=== PATIENT | female | born 1945 | race Caucasian/White ===

== ENCOUNTER → 2016-08-08 | Outpatient (CLI) | payer MEDICARE, BC ==
[~2016-08-08] MED LIST: ADVAIR 500-501 EACH IH; CALCIUM 600 +1 EAC2 PO; CENTRUM PO; DYMISTA NASAL S23 GM NS; EVISTA60 M1 PO; FLOVENT DISKU250 MCG IH; HYDROCHLOROTHIA25 MG PO; IRON1 TA1 PO; IRON325 MG PO; LIPITOR40 MG PO; LISINOPRIL-HCTZ1 T20 PO; NAPROSYN375 MG PO; NAPROSYN500 MG PO; NEURONTIN300 MG PO; NORVASC2.5 MG PO; PULMICORT180 MCG/A1 IH; SPIRIVA18 MCG INH; SYMBICORT INH; VITAMIN D1000 UNIT PO; XOLAIR150 MG/1.2; ZESTORETIC 10-1 EAC1; ZESTORETIC PO
== END | disposition home or self-care (01) ==
LOC: CSSDAY 14:10
DX: J45.40 Moderate persistent asthma, uncomplicated (principal); Z79.899 Other long term (current) drug therapy
CPT/HCPCS: J2357

== ENCOUNTER → 2016-09-01 | Outpatient (CLI) | payer MEDICARE, BC | END | disposition home or self-care (01) | LOC: CSSDAY 09:35 | DX: J45.40 Moderate persistent asthma, uncomplicated (principal); Z79.899 Other long term (current) drug therapy | CPT/HCPCS: 96372; J2357 ==

== ENCOUNTER → 2016-10-04 | Outpatient (CLI) | payer MEDICARE, BC | END | disposition home or self-care (01) | LOC: CSSDAY 09-29 09:00 | DX: J45.40 Moderate persistent asthma, uncomplicated (principal); Z79.899 Other long term (current) drug therapy | CPT/HCPCS: 96372; J2357 ==

== ENCOUNTER → 2016-11-03 | Outpatient (CLI) | payer MEDICARE, BC | END | disposition home or self-care (01) | LOC: CSSDAY 08:00 | DX: J45.40 Moderate persistent asthma, uncomplicated (principal) | CPT/HCPCS: 96372; J2357 ==

== ENCOUNTER → 2016-12-06 | Outpatient (CLI) | payer MEDICARE, BC | END | disposition home or self-care (01) | LOC: CSSDAY 12-01 09:15 | DX: J45.40 Moderate persistent asthma, uncomplicated (principal); Z79.899 Other long term (current) drug therapy | CPT/HCPCS: J2357 ==